=== PATIENT | male | born 1975 | race Caucasian/White ===

== ENCOUNTER 2017-03-29 09:43 | Inpatient (IN) | payer OTHER ==
[~2017-03-29] VITALS: Ht 182.8 cm; Wt 62.2 kg
[2017-03-29 09:55] VITALS: BP 131/73
[2017-03-29 10:11] LABS: BASO # 0.1 10*3/uL (0.0-0.1); BASO % 0.3 % (0.0-1.0); EOS # 0.2 10*3/uL (0.0-0.4); EOS % 1.1 % (1.0-4.0); HEMATOCRIT 37.8 % (42.0-52.0); HEMOGLOBIN 12.7 g/dl (14.0-18.0); IG # 0.1 10*3/uL (0.0-0.1); LYMPH # 2.4 10*3/uL (1.3-4.4); LYMPH % 15.1 % (27.0-41.0); MEAN CELL VOLUME 93.8 fl (80.0-94.0); MEAN CORPUSCULAR HGB 31.5 pg (27.0-31.0); MEAN CORPUSCULAR HGB CONC 33.6 g/dl (33.0-37.0); MEAN PLATELET VOLUME 10.2 fl (9.6-12.3); MONO # 1.4 10*3/uL (0.1-1.0); MONO % 8.8 % (3.0-9.0); NEUT % 74.3 % (47.0-73.0); PLATELET COUNT AUTOMATED 307 10*3/uL (130-400); RED BLOOD COUNT 4.03 10*6/uL (4.50-5.90); RED CELL DISTRI WIDTH 11.9 % (0-14.5); WHITE BLOOD COUNT 16.1 10*3/uL (4.8-10.8)
[2017-03-29 10:27] LABS: ALBUMIN 2.7 gm/dl (3.1-4.5); ALKALINE PHOSPHATASE 142 U/L (45-117); BILIRUBIN, TOTAL 0.6 mg/dl (0.2-1.0); BUN 15 mg/dl (7-24); CARBON DIOXIDE 26 mmol/L (21-32); CHLORIDE 100 mmol/L (98-107); EST GLOM FILT AFRICAN AMERICAN > 60 ml/min; GLUCOSE 97 mg/dL (65-99); POTASSIUM 3.8 mmol/L (3.5-5.1); SGOT/AST 17 IU/L (3-35); SGPT/ALT 42 U/L (12-78); SODIUM 135 mmol/L (136-145); TOTAL PROTEIN 7.4 gm/dL (6.4-8.2)
[2017-03-29 11:04] VITALS: BP 114/70
[2017-03-29 12:45] VITALS: BP 114/76
[2017-03-29 13:14] VITALS: BP 123/64
[2017-03-29 16:00] VITALS: BP 118/68
[2017-03-29 20:00] VITALS: BP 120/56
[2017-03-30] VITALS: BP 120/56
[2017-03-30 00:59] LABS: CKMB 0.9 ng/ml (0.5-3.6); CPK 103 U/L (39-308)
[2017-03-30 01:00] LABS: TROPONIN I < 0.015 ng/ml (<0.045)
[2017-03-30 07:15] LABS: CKMB 1.2 ng/ml (0.5-3.6); CPK 88 U/L (39-308); TROPONIN I < 0.015 ng/ml (<0.045)
[2017-03-30 07:25] LABS: BASO % 0.1 % (0.0-1.0); EOS % 0.1 % (1.0-4.0); HEMATOCRIT 37.6 % (42.0-52.0); HEMOGLOBIN 12.3 g/dl (14.0-18.0); IG # 0.1 10*3/uL (0.0-0.1); LYMPH # 1.9 10*3/uL (1.3-4.4); LYMPH % 14.4 % (27.0-41.0); MEAN CELL VOLUME 94.5 fl (80.0-94.0); MEAN CORPUSCULAR HGB 30.9 pg (27.0-31.0); MEAN CORPUSCULAR HGB CONC 32.7 g/dl (33.0-37.0); MEAN PLATELET VOLUME 11.2 fl (9.6-12.3); MONO # 0.9 10*3/uL (0.1-1.0); MONO % 6.5 % (3.0-9.0); NEUT # 10.5 10*3/uL (2.3-7.9); NEUT % 78.4 % (47.0-73.0); PLATELET COUNT AUTOMATED 300 10*3/uL (130-400); RED BLOOD COUNT 3.98 10*6/uL (4.50-5.90); RED CELL DISTRI WIDTH 11.9 % (0-14.5); WHITE BLOOD COUNT 13.4 10*3/uL (4.8-10.8)
[2017-03-30 07:36] LABS: ALBUMIN 2.1 gm/dl (3.1-4.5); BUN 21 mg/dl (7-24); CARBON DIOXIDE 27 mmol/L (21-32); CHLORIDE 108 mmol/L (98-107); CHOLESTEROL 99 mg/dL (<200); EST GLOM FILT AFRICAN AMERICAN > 60 ml/min; FREE T4 1.66 ng/dl (0.76-1.46); GLUCOSE 99 mg/dL (65-99); MAGNESIUM 2.4 mg/dL (1.5-2.1); PHOSPHOROUS 2.5 mg/dL (2.5-4.9); POTASSIUM 4.2 mmol/L (3.5-5.1); SGOT/AST 15 IU/L (3-35); SGPT/ALT 35 U/L (12-78); SODIUM 140 mmol/L (136-145); TOTAL PROTEIN 6.7 gm/dL (6.4-8.2); TRIGLYCERIDES 44 mg/dl (<150); VLDL CHOLESTEROL 9 mg/dL (6-40)
[2017-03-30 07:43] LABS: ALKALINE PHOSPHATASE 130 U/L (45-117); BILIRUBIN, TOTAL 0.3 mg/dl (0.2-1.0); HDL CHOLESTEROL 36 mg/dl (40-60); LDL CHOLESTEROL 54 mg/dL (9-159); THYROID STIM HORMONE (HS) 0.346 uIU/ml (0.358-4.75)
[2017-03-30 07:55] LABS: HEMOGLOBIN A1c 5.5 % (4.8-5.6)
[2017-03-30 08:00] VITALS: BP 132/66
[2017-03-30 08:48] LABS: FOLIC ACID 7.94 ng/mL (>5.38)
[2017-03-30 12:00] VITALS: BP 124/61
[2017-03-30 12:52] LABS: CKMB 0.7 ng/ml (0.5-3.6); CPK 89 U/L (39-308)
[2017-03-30 12:55] LABS: TROPONIN I < 0.015 ng/ml (<0.045)
[2017-03-30 16:00] VITALS: BP 119/65
[2017-03-30 20:44] VITALS: BP 120/62
[2017-03-30 23:52] VITALS: BP 116/54
[2017-03-31 06:28] LABS: BASO # 0.1 10*3/uL (0.0-0.1); BASO % 0.3 % (0.0-1.0); EOS # 0.1 10*3/uL (0.0-0.4); EOS % 0.8 % (1.0-4.0); HEMATOCRIT 38.8 % (42.0-52.0); HEMOGLOBIN 12.4 g/dl (14.0-18.0); IG # 0.1 10*3/uL (0.0-0.1); LYMPH # 2.6 10*3/uL (1.3-4.4); LYMPH % 17.9 % (27.0-41.0); MEAN CORPUSCULAR HGB 30.7 pg (27.0-31.0); MEAN PLATELET VOLUME 11.1 fl (9.6-12.3); MONO % 6.6 % (3.0-9.0); NEUT # 10.6 10*3/uL (2.3-7.9); NEUT % 73.8 % (47.0-73.0); PLATELET COUNT AUTOMATED 305 10*3/uL (130-400); RED BLOOD COUNT 4.04 10*6/uL (4.50-5.90); WHITE BLOOD COUNT 14.3 10*3/uL (4.8-10.8)
[2017-03-31 08:00] VITALS: BP 129/75
[2017-03-31] MEDS ORDERED: VENTOLIN H0.09 MG/AC INH (12:23)
[2017-03-31] MEDS ORDERED: LEVAQUIN750 M1 PO (12:23)
[2017-03-31] MEDS ORDERED: MUCINEX ER600 MG PO (12:23)
[2017-04-01 15:08] LABS: ORGANISM ID Not indicated. (.); SPECIMEN SOURCE Urine (.); STREPTOCOCCUS PNEUMONIAE AG Negative (Negative)
== END 2017-03-31 12:52 | disposition home or self-care (01) | DRG 193 ==
LOC: ED 09:43 → 4E 11:34 → EDHOLD 11:34 → 4E 12:19
PROVIDERS: Family Medicine; Internal Medicine; Nurse Practitioner Family
DX: J18.1 Lobar pneumonia, unspecified organism (principal); E43 Unspecified severe protein-calorie malnutrition; E87.1 Hypo-osmolality and hyponatremia; R59.9 Enlarged lymph nodes, unspecified; F17.200 Nicotine dependence, unspecified, uncomplicated; D72.829 Elevated white blood cell count, unspecified; D64.9 Anemia, unspecified; Z71.6 Tobacco abuse counseling; Z68.21 Body mass index [BMI] 21.0-21.9, adult; Z82.49 Family history of ischemic heart disease and other diseases of the circulatory system; Z91.041 Radiographic dye allergy status; Z79.51 Long term (current) use of inhaled steroids; Z79.2 Long term (current) use of antibiotics; Z79.899 Other long term (current) drug therapy

== ENCOUNTER 2017-06-24 21:06 | Emergency (ER) | payer OTHER ==
[~2017-06-24] VITALS: Ht 177.8 cm; Wt 86.2 kg
[~2017-06-24 21:06] MED LIST: LEVAQUIN750 M1 PO; MUCINEX ER600 MG PO; VENTOLIN H0.09 MG/AC INH
[2017-06-24] MEDS ORDERED: CLINDAMYCIN HC300 MG PO (23:15)
[2017-06-24] MEDS ORDERED: NORCO 5-325 TA1 EACH PO (23:15)
[2017-06-24] MEDS ORDERED: Motrin,Rufen800 MG PO (23:15)
== END 2017-06-24 23:24 | disposition home or self-care (01) ==
LOC: ED 21:06
DX: K02.9 Dental caries, unspecified (principal); K04.01 Reversible pulpitis; F17.200 Nicotine dependence, unspecified, uncomplicated; Z91.041 Radiographic dye allergy status

== ENCOUNTER 2017-10-16 21:08 | Emergency (ER) | payer OTHER ==
[~2017-10-16] VITALS: Ht 182.8 cm; Wt 72.6 kg
[~2017-10-16 21:08] MED LIST changes: +CLINDAMYCIN HC300 MG PO; +Motrin,Rufen800 MG PO; +NORCO 5-325 TA1 EACH PO
[2017-10-16] MEDS ORDERED: Motrin,Rufen800 MG PO (22:02)
== END 2017-10-16 22:51 | disposition home or self-care (01) ==
LOC: ED 21:08
DX: S50.12XA Contusion of left forearm, initial encounter (principal); F17.200 Nicotine dependence, unspecified, uncomplicated; Z91.041 Radiographic dye allergy status; W20.8XXA Other cause of strike by thrown, projected or falling object, initial encounter; Y93.89 Activity, other specified; Y92.89 Other specified places as the place of occurrence of the external cause; Y99.8 Other external cause status

== ENCOUNTER 2018-03-09 21:26 | Emergency (ER) | payer SELFPAY ==
[~2018-03-09] VITALS: Wt 72.6 kg
[2018-03-09] MEDS ORDERED: NAPROSYN500 MG PO (21:44)
[2018-03-09] MEDS ORDERED: AMOXICILLIN500 M2 PO (21:44)
== END 2018-03-09 21:51 | disposition home or self-care (01) ==
LOC: ED 21:26
DX: K08.89 Other specified disorders of teeth and supporting structures (principal); F17.200 Nicotine dependence, unspecified, uncomplicated; Z79.899 Other long term (current) drug therapy; Z91.041 Radiographic dye allergy status

== ENCOUNTER 2018-03-20 17:34 | Emergency (ER) | payer SELFPAY ==
[~2018-03-20] VITALS: Wt 70.3 kg
[~2018-03-20 17:34] MED LIST changes: +AMOXICILLIN500 M2 PO; +NAPROSYN500 MG PO
== END 2018-03-20 18:20 | disposition left against medical advice (07) ==
LOC: ED 17:34
DX: R19.7 Diarrhea, unspecified (principal); R05 Cough; R09.81 Nasal congestion; F17.200 Nicotine dependence, unspecified, uncomplicated; Z79.899 Other long term (current) drug therapy; Z91.041 Radiographic dye allergy status

== ENCOUNTER → 2018-12-11 | Outpatient (CLI) | payer BC ==
[2018-12-11 14:36] LABS: BASO # 0.1 10*3/uL (0.0-0.1); BASO % 0.7 % (0.0-1.0); EOS # 0.2 10*3/uL (0.0-0.4); EOS % 1.8 % (1.0-4.0); HEMATOCRIT 45.2 % (42.0-52.0); HEMOGLOBIN 14.6 g/dl (14.0-18.0); LYMPH # 2.3 10*3/uL (1.3-4.4); LYMPH % 26.2 % (27.0-41.0); MEAN CELL VOLUME 96.6 fl (80.0-94.0); MEAN CORPUSCULAR HGB 31.2 pg (27.0-31.0); MEAN CORPUSCULAR HGB CONC 32.3 g/dl (33.0-37.0); MEAN PLATELET VOLUME 11.7 fl (9.6-12.3); MONO # 0.4 10*3/uL (0.1-1.0); MONO % 4.7 % (3.0-9.0); NEUT # 5.9 10*3/uL (2.3-7.9); NEUT % 66.3 % (47.0-73.0); PLATELET COUNT AUTOMATED 181 10*3/uL (130-400); RED BLOOD COUNT 4.68 10*6/uL (4.50-5.90); RED CELL DISTRI WIDTH 12.3 % (0-14.5); WHITE BLOOD COUNT 8.9 10*3/uL (4.8-10.8)
[2018-12-11 15:06] LABS: ALBUMIN 3.8 gm/dl (3.1-4.5); ALKALINE PHOSPHATASE 90 U/L (45-117); BILIRUBIN, DIRECT 0.2 mg/dL (0.0-0.2); BUN 17 mg/dl (7-24); CHLORIDE 103 mmol/L (98-107); CREATININE 1.01 mg/dL (0.70-1.30); POTASSIUM 4.6 mmol/L (3.5-5.1); SGOT/AST 23 IU/L (3-35); SGPT/ALT 47 U/L (12-78); SODIUM 137 mmol/L (136-145); TOTAL PROTEIN 7.4 gm/dL (6.4-8.2)
[2018-12-12 06:12] LABS: HEPATITIS B SURFACE AG Negative (Negative); HEPATITIS C VIRUS ANTIBODY <0.1 s/co (0.0-0.9)
== END | disposition home or self-care (01) ==
LOC: LAB 14:01
PROVIDERS: Anesthesiology Addiction Medicine
DX: F11.20 Opioid dependence, uncomplicated (principal)

== ENCOUNTER → 2020-08-25 | Outpatient (CLI) | payer BC ==
[~2020-08-25] MED LIST changes: +IBU800 MG PO; +PENICILLIN VK500 MG PO
[2020-08-25 15:16] LABS: BASO % 0.6 % (0.0-1.0); EOS # 0.1 10*3/uL (0.0-0.4); EOS % 1.8 % (1.0-4.0); HEMATOCRIT 44.6 % (42.0-52.0); LYMPH # 2.1 10*3/uL (1.3-4.4); LYMPH % 31.5 % (27.0-41.0); MEAN CELL VOLUME 93.5 fl (80.0-94.0); MEAN CORPUSCULAR HGB 30.6 pg (27.0-31.0); MEAN CORPUSCULAR HGB CONC 32.7 g/dl (33.0-37.0); MONO # 0.3 10*3/uL (0.1-1.0); MONO % 4.3 % (3.0-9.0); NEUT # 4.1 10*3/uL (2.3-7.9); NEUT % 61.7 % (47.0-73.0); PLATELET COUNT AUTOMATED 191 10*3/uL (130-400); RED BLOOD COUNT 4.77 10*6/uL (4.50-5.90); RED CELL DISTRI WIDTH 12.1 % (0-14.5); WHITE BLOOD COUNT 6.7 10*3/uL (4.8-10.8)
[2020-08-25 15:32] LABS: ALBUMIN 3.7 gm/dl (3.1-4.5); ALBUMIN 3.8 gm/dl (3.1-4.5); ALKALINE PHOSPHATASE 89 U/L (45-117); BUN 16 mg/dl (7-24); CHLORIDE 109 mmol/L (98-107); CHOLESTEROL 167 mg/dL (<200); CREATININE 0.99 mg/dL (0.70-1.30); HDL CHOLESTEROL 73 mg/dl (40-60); LDL CHOLESTEROL 80 mg/dL (9-159); POTASSIUM 4.4 mmol/L (3.5-5.1); POTASSIUM 4.5 mmol/L (3.5-5.1); SGOT/AST 22 IU/L (3-35); SGPT/ALT 29 U/L (12-78); SODIUM 139 mmol/L (136-145); TOTAL PROTEIN 7.4 gm/dL (6.4-8.2); TOTAL PROTEIN 7.5 gm/dL (6.4-8.2); TRIGLYCERIDES 70 mg/dl (<150); VLDL CHOLESTEROL 14 mg/dL (6-40)
[2020-08-25 16:05] LABS: BILIRUBIN, DIRECT 0.2 mg/dL (0.0-0.2)
[2020-08-26 10:08] LABS: HEP B CORE AB, IGM Negative (Negative); HEPATITIS B SURFACE AG Negative (Negative); HEPATITIS C VIRUS ANTIBODY <0.1 s/co (0.0-0.9)
[2020-08-29 08:10] LABS: TB1 Ag VALUE 0.05 IU/mL (.)
== END | disposition home or self-care (01) ==
LOC: LAB 14:19 → CARD 15:00
PROVIDERS: Registered Nurse Critical Care Medicine; ATTEND Family Medicine
DX: R01.1 Cardiac murmur, unspecified (principal); F11.20 Opioid dependence, uncomplicated; F19.10 Other psychoactive substance abuse, uncomplicated; R63.4 Abnormal weight loss; Z12.5 Encounter for screening for malignant neoplasm of prostate

== ENCOUNTER → 2024-01-28 | Outpatient (CLI) | payer BC ==
[2024-01-28 17:46] LABS: BASO # 0.1 10*3/uL (0.0-0.1); BASO % 0.6 % (0.0-1.0); EOS # 0.3 10*3/uL (0.0-0.4); EOS % 2.7 % (1.0-4.0); HEMATOCRIT 45.8 % (42.0-52.0); LYMPH # 3.2 10*3/uL (1.3-4.4); LYMPH % 34.6 % (27.0-41.0); MEAN CELL VOLUME 91.8 fl (80.0-94.0); MEAN CORPUSCULAR HGB 30.5 pg (27.0-31.0); MEAN CORPUSCULAR HGB CONC 33.2 g/dl (33.0-37.0); MEAN PLATELET VOLUME 11.5 fl (9.6-12.3); MONO # 0.5 10*3/uL (0.1-1.0); MONO % 4.9 % (3.0-9.0); NEUT # 5.3 10*3/uL (2.3-7.9); PLATELET COUNT AUTOMATED 192 10*3/uL (130-400); RED BLOOD COUNT 4.99 10*6/uL (4.50-5.90); RED CELL DISTRI WIDTH 12.6 % (0-14.5); WHITE BLOOD COUNT 9.3 10*3/uL (4.8-10.8)
[2024-01-28 18:08] LABS: ALKALINE PHOSPHATASE 88 U/L (46-116); BUN 13 mg/dl (9-23); CHLORIDE 104 mmol/L (98-107); POTASSIUM 3.4 mmol/L (3.4-5.1); SGPT/ALT 16 U/L (5-49); TOTAL PROTEIN 7.5 gm/dL (6.0-8.0)
[2024-01-29 07:07] LABS: HBSAG Negative (Negative); HEP B CORE AB, IGM Negative (Negative); HEPATITIS C ANTIBODY Non Reactive (Non Reactive)
== END | disposition home or self-care (01) ==
LOC: LAB 01-27 13:18
PROVIDERS: ATTEND Physician Assistant Medical
DX: F11.20 Opioid dependence, uncomplicated (principal)

== ENCOUNTER 2024-06-27 09:59 | Emergency (ER) | payer BC ==
[~2024-06-27] VITALS: Ht 182.8 cm; Wt 68.0 kg
[2024-06-27] MEDS ORDERED: BUPRENORPHINE-1 EAC2 SL (10:22)
[2024-06-27] MEDS ORDERED: AVPAK AZITHROM250 MG PO (10:31)
[2024-06-27] MEDS ORDERED: SODIUM CHLORIDE 0.9% 1,000 ML IV ONE (10:35)
[2024-06-27] MEDS ORDERED: Ketorolac Tromethamine 30 MG/ML VIAL IV ONE (10:35)
[2024-06-27 10:51] LABS: BASO % 0.4 % (0.0-1.0); EOS # 0.1 10*3/uL (0.0-0.4); EOS % 0.5 % (1.0-4.0); HEMATOCRIT 45.2 % (42.0-52.0); LYMPH # 1.4 10*3/uL (1.3-4.4); LYMPH % 12.4 % (27.0-41.0); MEAN CELL VOLUME 93.6 fl (80.0-94.0); MEAN CORPUSCULAR HGB 31.1 pg (27.0-31.0); MEAN CORPUSCULAR HGB CONC 33.2 g/dl (33.0-37.0); MEAN PLATELET VOLUME 11.3 fl (9.6-12.3); MONO # 0.3 10*3/uL (0.1-1.0); MONO % 2.4 % (3.0-9.0); NEUT # 9.4 10*3/uL (2.3-7.9); NEUT % 83.9 % (47.0-73.0); PLATELET COUNT AUTOMATED 167 10*3/uL (130-400); RED BLOOD COUNT 4.83 10*6/uL (4.50-5.90); RED CELL DISTRI WIDTH 12.2 % (0-14.5); WHITE BLOOD COUNT 11.3 10*3/uL (4.8-10.8)
[2024-06-27 11:12] LABS: ALKALINE PHOSPHATASE 95 U/L (46-116); BUN 17 mg/dl (9-23); CHLORIDE 106 mmol/L (98-107); POTASSIUM 3.8 mmol/L (3.4-5.1); SGPT/ALT 25 U/L (5-49); TOTAL PROTEIN 7.1 gm/dL (6.0-8.0)
[2024-06-27] MEDS ORDERED: MELOXICAM15 MG PO (13:45)
[2024-06-27] MEDS ORDERED: CIPRO500 MG PO (13:45)
[2024-06-27] MEDS ORDERED: FLOMAX0.4 MG PO (13:45)
[2024-06-27] MEDS ORDERED: Ketorolac Tromethamine 10 MG TAB PO ONE (13:50)
== END 2024-06-27 14:25 | disposition home or self-care (01) ==
LOC: ED 09:59
PROVIDERS: Internal Medicine
DX: N20.0 Calculus of kidney (principal); R11.2 Nausea with vomiting, unspecified; F17.200 Nicotine dependence, unspecified, uncomplicated; Z91.041 Radiographic dye allergy status; Z98.890 Other specified postprocedural states